=== PATIENT | male | born 2000 | race Caucasian/White ===

== ENCOUNTER 2023-07-31 20:19 | Emergency (ER) | payer OTHER ==
[2023-07-31 20:30] VITALS: RESP 20; TEMP 97.4
[2023-07-31] MEDS ORDERED: DIPH,PERTUS(ACELL)TETVAC-LF 0.5 ML VIAL IM ONE (20:40)
[2023-07-31] MEDS ORDERED: KETOROLAC 15 MG/ML 1 ML VIAL IM STA (20:40)
[2023-07-31] MEDS ORDERED: BACITRACIN OINT 1 EACH PACKET TOPICAL ONE (20:50)
[2023-07-31] MEDS ORDERED: ACET/COD 300 MG/30 MG STARTER PACK 6 TAB BTL PO STA (20:51)
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
[2023-07-31 21:19] VITALS: BP 138/78; PULSE 90
== END 2023-07-31 21:18 | disposition home or self-care (01) ==
LOC: EC 20:19
DX: T22.112A Burn of first degree of left forearm, initial encounter (principal); T22.232A Burn of second degree of left upper arm, initial encounter; T31.0 Burns involving less than 10% of body surface; F17.290 Nicotine dependence, other tobacco product, uncomplicated; Z88.0 Allergy status to penicillin; Z23 Encounter for immunization; X13.1XXA Other contact with steam and other hot vapors, initial encounter
CPT/HCPCS: 90715; 99283; 96372; 90471; 16000; J1885